=== PATIENT | female | born 1965 | race Caucasian/White ===

== ENCOUNTER 2018-09-02 09:47 | Emergency (ER) | payer BC ==
[~2018-09-02] VITALS: Ht 160 cm; Wt 75.5 kg
[2018-09-02] MEDS ORDERED: SYNT150T PO (09:53)
[2018-09-02] MEDS ORDERED: PHEN-239 PO (09:53)
[2018-09-02] MEDS ORDERED: TOPI1CAP2 PO (09:53)
--- NOTE | 2018-09-02 10:34 | REP ---
Left lower extremity Duplex Doppler venous ultrasound: Real time compression and duplex Doppler interrogation of the left lower extremity deep venous system is performed. The left common femoral, superficial femoral and popliteal veins are fully compressible with transducer pressure and demonstrate normal spontaneous and phasic flow, without evidence of deep venous thrombosis. Impression: No evidence of deep venous thrombosis of the left lower extremity femoral popliteal venous system. Electronically Signed by Ameya Espana MD 09/02/2018 10:25 A
[2018-09-02 11:33] VITALS: BP 120/77
== END 2018-09-02 11:36 | disposition home or self-care (01) ==
LOC: M ED 09:47
DX: M76.52 Patellar tendinitis, left knee (principal); S70.12XA Contusion of left thigh, initial encounter; X58.XXXA Exposure to other specified factors, initial encounter; Y92.9 Unspecified place or not applicable; Y93.9 Activity, unspecified; Y99.9 Unspecified external cause status; E03.9 Hypothyroidism, unspecified; F90.0 Attention-deficit hyperactivity disorder, predominantly inattentive type; Z87.442 Personal history of urinary calculi; Z87.81 Personal history of (healed) traumatic fracture; Z86.718 Personal history of other venous thrombosis and embolism; Z98.84 Bariatric surgery status; Z87.891 Personal history of nicotine dependence; Z79.899 Other long term (current) drug therapy; Z88.0 Allergy status to penicillin